=== PATIENT | female | born 1990 | race Caucasian/White ===

== ENCOUNTER → 2017-01-10 | Outpatient (CLI) | payer BC ==
--- NOTE | 2017-01-10 17:30 | US ---
EXAMINATION TYPE: US thyroid st tissue head/neck DATE OF EXAM: 01/10/2017 COMPARISON: CLINICAL HISTORY: R22.0 Left mastoid lump. Palpable lump noticed since july. Patient states has not changed in size. Left mastoid palpable lump scanned. Superficial hypoechoic lesion seen with vascular flow. Size= 0.8 x 0.7 x 0.3 cm. Contralateral image taken. IMPRESSION: At the site of patient's clinical abnormality hypoechoic focus with increased through tr ansmission is noted. Findings could be related to lymph node, inclusion cyst, correlate to exclude in fection. CT scan could be performed to the region with contrast for better evaluation.
== END | disposition home or self-care (01) ==
LOC: RADUSWWP 14:44
PROVIDERS: ATTEND Family Medicine
DX: R22.0 Localized swelling, mass and lump, head (principal)
CPT/HCPCS: 76536